=== PATIENT | male | born 1995 | race Caucasian/White ===

== ENCOUNTER 2017-04-30 23:49 | Emergency (ER) | payer OTHER ==
[~2017-04-30] VITALS: Ht 175.3 cm; Wt 77.1 kg
[~2017-04-30 23:49] MED LIST: ALBUTEROL17 GM INH; ERYTHROMYCIN O3.5 GM OD; KEFLEX500 MG PO; LORTAB 5-325 M1 EACH PO; NO MEDICATIONS; POLYTRIM EYE DR10 ML OS; PREDNISONE PO; PREDNISONE10 MG PO; PROMETHAZINE-D240 ML PO
[2017-05-01 00:57] LABS: URINE SOURCE CLEAN CATCH
[2017-05-01 00:59] LABS: URINE APPEARANCE CLEAR; URINE BILIRUBIN NEG (NEG); URINE BLOOD NEG (NEG); URINE COLOR DK YELLOW; URINE GLUCOSE NEG (NORM); URINE KETONE NEG (NEG); URINE LEUKOCYTE ESTERASE NEG (NEG); URINE NITRATE NEG (NEG); URINE PH 5.5 (5-8); URINE PROTEIN NEG (NEG); URINE SPECIFIC GRAVITY >=1.030 (1.003-1.035); URINE UROBILINOGEN 0.2 MG/DL (NORM)
[2017-05-01 01:02] LABS: MICRO INDICATED? NO
[2017-05-01 01:09] LABS: AMPHETAMINE POS (NEG); BARBITURATES NEG (NEG); BENZODIAZEPINES NEG (NEG); COCAINE NEG (NEG); MARIJUANA POS (NEG); OPIATES NEG (NEG); TRICYCLIC ANTIDEPRESSANTS NEG (NEG); U METHADONE NEG (NEG)
[2017-05-01] MEDS ORDERED: ALBUTEROL17 GM INH (01:46)
== END 2017-05-01 01:51 | disposition home or self-care (01) ==
LOC: SED 23:49
PROVIDERS: Emergency Medicine
DX: F15.10 Other stimulant abuse, uncomplicated (principal); R05 Cough; F17.200 Nicotine dependence, unspecified, uncomplicated
CPT/HCPCS: 80307; 81003; 99283